=== PATIENT | male | born 1945 | race Caucasian/White ===

== ENCOUNTER 2022-03-17 20:50 | Emergency (ER) | payer OTHER, MEDICARE ==
[~2022-03-17] VITALS: Ht 182.9 cm; Wt 103.0 kg
[2022-03-17 20:59] VITALS: BP_SYST 132
[2022-03-17] MEDS ORDERED: NAPR-1172 PO (21:56)
[2022-03-17 22:48] VITALS: BP_SYST 130
== END 2022-03-17 22:48 | disposition home or self-care (01) ==
LOC: SED 20:50
DX: S50.12XA Contusion of left forearm, initial encounter (principal); S60.212A Contusion of left wrist, initial encounter; M79.81 Nontraumatic hematoma of soft tissue; W09.8XXA Fall on or from other playground equipment, initial encounter; Y93.64 Activity, baseball; Y92.89 Other specified places as the place of occurrence of the external cause; Y99.8 Other external cause status
CPT/HCPCS: 73090; 99283